=== PATIENT | female | born 1935 | race Caucasian/White ===

== ENCOUNTER 2021-05-04 10:33 | Inpatient (IN) | payer OTHER ==
[2021-05-04] MEDS ORDERED: ACETAMINOPHEN 1000 MG/100 ML VIAL (NON FORMULARY) IVPB ONE (10:54)
[2021-05-04] MEDS ORDERED: SODIUM CHLORIDE 0.9% 500 ML INFUS.BAG IV ONE (10:54)
[2021-05-04] MEDS ORDERED: ACETAMINOPHEN INJECTION 100 ML IVPB ONE (11:24)
[2021-05-04 11:39] LABS: BASO % 0.7 % (0-2.0); EOS % 0.9 % (0-4.5); HEMATOCRIT 39.9 % (32.4-45.2); HEMOGLOBIN 13.4 GM/dl (10.7-15.3); LYMPH % 21.3 % (8-40); MCHC 33.6 g/dl (32.0-36.0); MEAN PLT VOLUME 7.2 fl (7.5-11.1); MONO % 10.6 % (3.8-10.2); NEUT % 66.5 % (42.8-82.8); PLATELET COUNT 228 10^3/uL (134-434); RDW 12.5 % (11.6-15.6); WHITE BLOOD COUNT 7.4 K/mm3 (4.0-10.8)
[2021-05-04] MEDS ORDERED: MEROPENEM 500 MG in DEXTROSE 5%-WATER 100 ML IVPB ONE (11:54)
[2021-05-04 11:55] LABS: BILIRUBIN,TOTAL 0.9 mg/dl (0.2-1); CREATININE 1.1 mg/dl (0.55-1.3); INR 1.12 (0.82-1.09); PROTHROMBIN TIME (PATIENT) 12.4 SEC (10.2-13.0); TOT PROT 7.3 g/dl (6.4-8.2)
[2021-05-04 12:02] VITALS: BMI 24.3
[2021-05-04] MEDS ORDERED: morphine CARPU-JECT 2 MG/1 ML DISP.SYRIN IVPUSH ONE (12:24)
[2021-05-04] MEDS ORDERED: morphine SULFATE 4 MG/ML VIAL ONE (12:24)
[2021-05-04 12:36] LABS: ERYTHROCYTE SEDIMENTATION RATE 32 mm/hr (0-30)
[2021-05-04] MEDS ORDERED: MEROPENEM 1 GM in DEXTROSE 5%-WATER 100 ML IVPB SCH ×3 (18:00→20:00)
[2021-05-04] MEDS ORDERED: MEROPENEM 1 GM VIAL (RESTRICTED TO ID) IVPB ONE (18:46)
[2021-05-04] MEDS ORDERED: DEXTROSE 5%-WATER 100 ML IVPB ONE (18:46)
[2021-05-04] MEDS: MEROPENEM 1 GM in DEXTROSE 5%-WATER 100 ML IVPB SCH (19:30)
[2021-05-05] MEDS ORDERED: DEXTROSE 5%-WATER 100 ML IVPB ONE ×2 (07:07→20:10)
[2021-05-05] MEDS ORDERED: MEROPENEM 1 GM VIAL (RESTRICTED TO ID) IVPB ONE ×2 (07:07→20:11)
[2021-05-05] MEDS: MEROPENEM 1 GM in DEXTROSE 5%-WATER 100 ML IVPB SCH ×2 (07:11→20:17)
[2021-05-05 09:05] LABS: BASO % 0.5 % (0-2.0); EOS % 2.5 % (0-4.5); HEMATOCRIT 36.1 % (32.4-45.2); HEMOGLOBIN 11.7 GM/dl (10.7-15.3); LYMPH % 28.3 % (8-40); MCH 30.8 pg (25.7-33.7); MCHC 32.5 g/dl (32.0-36.0); MEAN CELL VOLUME 94.9 fl (80-96); MEAN PLT VOLUME 7.4 fl (7.5-11.1); MONO % 11.6 % (3.8-10.2); NEUT % 57.1 % (42.8-82.8); PLATELET COUNT 215 10^3/uL (134-434); RDW 12.3 % (11.6-15.6); WHITE BLOOD COUNT 5.7 K/mm3 (4.0-10.8)
[2021-05-05] MEDS: CHLORTHALIDONE 25 MG TABLET PO SCH (09:11)
[2021-05-05] MEDS: LOSARTAN POTASSIUM 50 MG TABLET PO SCH (09:12)
[2021-05-05] MEDS: ACETAMINOPHEN 325 MG TABLET (FP) PO PRN ×2 (09:12→18:06)
[2021-05-05] MEDS: ENOXAPARIN NA (PORCINE) 40 MG/0.4 ML DISP.SYRIN SQ SCH (09:13)
[2021-05-05 09:15] LABS: ALBUMIN 3.4 g/dl (3.4-5.0); CALCIUM 8.7 mg/dl (8.5-10); MAGNESIUM 1.7 mg/dL (1.8-2.4); TOT PROT 6.2 g/dl (6.4-8.2)
[2021-05-05] MEDS ORDERED: oxyCODONE HCL 5 MG TABLET PO PRN (10:14)
[2021-05-05] MEDS: oxyCODONE HCL 5 MG TABLET PO PRN ×3 (10:55→18:05)
[2021-05-05] MEDS: KETOROLAC TROMETHAMINE 15 MG/ML VIAL IVPUSH PRN (14:48)
[2021-05-06] MEDS ORDERED: DEXTROSE 5%-WATER 100 ML IVPB ONE ×2 (06:11→16:15)
[2021-05-06] MEDS ORDERED: MEROPENEM 1 GM VIAL (RESTRICTED TO ID) IVPB ONE ×2 (06:11→16:15)
[2021-05-06] MEDS: KETOROLAC TROMETHAMINE 15 MG/ML VIAL IVPUSH PRN ×2 (06:30→12:30)
[2021-05-06] MEDS: MEROPENEM 1 GM in DEXTROSE 5%-WATER 100 ML IVPB SCH ×2 (06:33→18:34)
[2021-05-06] MEDS: ACETAMINOPHEN 325 MG TABLET (FP) PO PRN ×2 (07:25→14:58)
[2021-05-06] MEDS: oxyCODONE HCL 5 MG TABLET PO PRN (08:43)
[2021-05-06] MEDS: ENOXAPARIN NA (PORCINE) 40 MG/0.4 ML DISP.SYRIN SQ SCH (11:00)
[2021-05-06] MEDS: LOSARTAN POTASSIUM 50 MG TABLET PO SCH (11:00)
[2021-05-06] MEDS: CHLORTHALIDONE 25 MG TABLET PO SCH (12:29)
[2021-05-07] MEDS: ACETAMINOPHEN 325 MG TABLET (FP) PO PRN ×3 (02:20→18:16)
[2021-05-07] MEDS ORDERED: MEROPENEM 1 GM VIAL (RESTRICTED TO ID) IVPB ONE (06:13)
[2021-05-07] MEDS: MEROPENEM 1 GM in DEXTROSE 5%-WATER 100 ML IVPB SCH (06:39)
[2021-05-07 08:20] LABS: BASO % 0.6 % (0-2.0); EOS % 2.6 % (0-4.5); HEMATOCRIT 35.4 % (32.4-45.2); HEMOGLOBIN 11.7 GM/dl (10.7-15.3); MCH 31.1 pg (25.7-33.7); MEAN CELL VOLUME 94.2 fl (80-96); MEAN PLT VOLUME 7.2 fl (7.5-11.1); MONO % 10.7 % (3.8-10.2); NEUT % 64.1 % (42.8-82.8); PLATELET COUNT 213 10^3/uL (134-434); RBC 3.76 M/mm3 (3.60-5.2); RDW 12.2 % (11.6-15.6)
[2021-05-07 08:49] LABS: ALBUMIN 3.3 g/dl (3.4-5.0); BILIRUBIN,TOTAL 0.9 mg/dl (0.2-1); CREATININE 1.1 mg/dl (0.55-1.3); MAGNESIUM 1.7 mg/dL (1.8-2.4); TOT PROT 6.1 g/dl (6.4-8.2)
[2021-05-07] MEDS ORDERED: PT OWN MED DRAWER 7, Y5N ONE (09:50)
[2021-05-07] MEDS: ENOXAPARIN NA (PORCINE) 40 MG/0.4 ML DISP.SYRIN SQ SCH (09:53)
[2021-05-07] MEDS: LOSARTAN POTASSIUM 50 MG TABLET PO SCH (09:53)
[2021-05-07] MEDS: CHLORTHALIDONE 25 MG TABLET PO SCH (09:53)
[2021-05-08] MEDS: LOSARTAN POTASSIUM 50 MG TABLET PO SCH (09:38)
[2021-05-08] MEDS: ENOXAPARIN NA (PORCINE) 40 MG/0.4 ML DISP.SYRIN SQ SCH (09:38)
[2021-05-08] MEDS: CHLORTHALIDONE 25 MG TABLET PO SCH (09:39)
[2021-05-08 11:31] VITALS: BP 168/58; PULSE 68; TEMP 98
== END 2021-05-08 12:11 | disposition home or self-care (01) | DRG 603 ==
LOC: FER 10:33 → FM/S 14:16
PROVIDERS: ADMIT Internal Medicine; ATTEND Nurse Practitioner Acute Care
DX: L03.012 Cellulitis of left finger (principal); I10 Essential (primary) hypertension; C50.911 Malignant neoplasm of unspecified site of right female breast
CPT/HCPCS: 36415; 73140-TC-LT-FY; 80053; 83735; 85025; 85610; 85651; 86140; 86850; 86900; 86901; 87040; 87070; 87205; 97116-GP; 97161-GP; 99285-25; C9803; J0131; U0003; U0005